=== PATIENT | male | born 1980 | race Caucasian/White ===

== ENCOUNTER 2017-04-22 09:15 | Emergency (ER) | payer OTHER ==
[~2017-04-22] VITALS: Ht 175.3 cm; Wt 72.6 kg
[2017-04-22 09:34] VITALS: BP 154/93
[2017-04-22 10:06] VITALS: BP 147/90
[2017-04-22] MEDS ORDERED: BACITRACIN15 GM TOPIC (10:15)
[2017-04-22] MEDS ORDERED: KEFLEX500 MG ORAL (10:15)
--- NOTE | 2017-04-22 10:39 | Emergency Room Report ---
History of Present Illness General Chief Complaint: Medical Clearance Source: Patient Present Illness HPI 37-year-old male presents ED for evaluation. Patient is here for senior care clearance. In police custody. Patient presents with a laceration to his forehead. States he "walked into a pole" last night. Did not know what time. Tetanus is up-to-date. Denies any pain. Denies any other injuries. Denies blurry vision or photophobia. No other aggravating relieving factors. Denies any other associated symptoms Allergies: Coded Allergies: No Known Allergies (Unverified , 04/22/17) Patient History Past Medical History: none Past Surgical History: none Pertinent Family History: none Social History: Reports: drug use, Denies: smoking, alcohol use Immunizations: UTD Reviewed Nursing Documentation: PMH: Agreed, PSxH: Agreed Nursing Documentation-PMH Past Medical History: No Stated History Review of Systems All Other Systems: negative except mentioned in HPI Physical Exam Vital Signs Date Time Temp Pulse Resp B/P (MAP) Pulse Ox O2 Delivery O2 Flow Rate FiO2 04/22/17 09:20 97.6 104 16 154/93 97 Room Air 97.5 Sp02 EP Interpretation: reviewed, normal General Appearance: no apparent distress, alert, GCS 15, non-toxic Head: normocephalic Eyes: bilateral eye normal inspection, bilateral eye PERRL ENT: hearing grossly normal, normal pharynx, no angioedema, normal voice Neck: full range of motion, no bony tend, supple/symm/no masses Respiratory: normal inspection Cardiovascular #1: normal inspection Gastrointestinal: normal inspection Rectal: deferred Genitourinary: no CVA tenderness Musculoskeletal: normal inspection Neurologic: alert, oriented x3, responsive, motor strength/tone normal, sensory intact, speech normal Psychiatric: judgement/insight normal, memory normal, mood/affect normal, no suicidal/homicidal ideation Skin: laceration - 1cm vertical laceration to forehead. granulation tissue noted. surrounding erythema Lymphatic: normal inspection Medical Decision Making Diagnostic Impression: Primary Impression: Forehead laceration Qualified Codes: S01.81XA - Laceration without foreign body of other part of head, initial encounter Additional Impression: Medical clearance for incarceration ER Course Hospital Course 37-year-old M presents to ED s/p laceration to forehead. in police custody Clinical course Patient placed on stretcher. After initial history physical exam reveals male in no acute distress. On exam there is a healing laceration to the forehead. Regulation tissue noted. There is some minimal erythema surrounding the laceration. This laceration does appear old and is likely not amenable to suture. Wound irrigated. Steri-Strips applied Patient is medically clear for incarceration Diagnosis - forehead laceration, medical clearance for incaceration Stable and discharged to home with prescription for Keflex, bactriacin. wound Care instructions given. Followup with PMD. Return to ED if any signs of infection develop Last Vital Signs Date Time Temp Pulse Resp B/P (MAP) Pulse Ox O2 Delivery O2 Flow Rate FiO2 04/22/17 10:06 97.5 89 16 147/90 97 Room Air 97.5 Status: improved Disposition: HOME, SELF-CARE Condition: Stable Scripts Cephalexin* (KEFLEX*) 500 Mg Capsule 500 MG ORAL Q6H, #28 CAP 0 Refills Prov: ARTHUR VELÁSQUEZ M.D. 04/22/17 Bacitracin (Bacitracin) 28.4 Gm Oint...g. 1 APPLIC TOPIC THREE TIMES A DAY, #28.4 GM Prov: ARTHUR VELÁSQUEZ M.D. 04/22/17 Departure Forms: [facility] Clearance Patient Instructions: Nonsutured Laceration Care ARTHUR VELÁSQUEZ M.D. Apr 22, 2017 10:39
== END 2017-04-22 10:24 | disposition home or self-care (01) ==
LOC: EMR 09:40
DX: S01.81XA Laceration without foreign body of other part of head, initial encounter (principal); W51.XXXA Accidental striking against or bumped into by another person, initial encounter; Y92.9 Unspecified place or not applicable
CPT/HCPCS: 99283